=== PATIENT | male | born 1955 | race American Indian/Alaskan Native ===

== ENCOUNTER 2022-05-18 14:33 | Emergency (ER) | payer MEDICARE ==
[2022-05-18 14:39] VITALS: BP 96/60
[2022-05-18] MEDS ORDERED: LACTATED RINGERS 1,000 ML IV ONE (15:37)
--- NOTE | 2022-05-18 15:41 | Emergency Department Report ---
ED General Adult HPI - General Chief complaint: Urogenital-Male Stated complaint: HEMATURIA Time Seen by Provider: 05/18/22 15:36 Source: patient, EMS Mode of arrival: Stretcher Limitations: No Limitations - History of Present Illness Initial comments: PATIENT ARRIVING FROM [facility] FOR HEMATURIA STARTED TODAY IN [place] [facility]. THIS IS A NON-VERBAL, GENERALIZED BODY CONTRACTED MALE WHICH PER NURSE, ITS HIS BASELINE BROUGHT IN BY EMS FROM [facility] BECAUSE THEY HAVE NOTICED BLOOD IN THE URINE FROM THE [place]. DENIES ANY OTHER ISSUES. UNABLE TO OBTAIN ROS OR HPI FROM THE PATIENT DUE TO PATIENT'S BASELINE NOT ABLE TO HAVE CONVERSATIONS. - Related Data Home Medications Medication Instructions Recorded Confirmed Last Taken Bethanechol 10 mg FEEDTUBE TID 01/25/22 02/02/22 Unknown Cyanocobalamin [Vitamin B-12] 100 mcg PO DAILY 01/25/22 02/02/22 Unknown Enoxaparin 40 mg SQ QDAY 01/25/22 02/02/22 Unknown Erythromycin Ethylsucc Susp 20 ml FEEDTUBE Q8H 01/25/22 02/02/22 Unknown [E.e.s. 200] Famotidine [Zantac-360 20 mg FEEDTUBE DAILY 01/25/22 02/02/22 Unknown (Famotidine)] Fluticasone [Flonase] 1 spray BN BID 01/25/22 02/02/22 Unknown Glycopyrrolate 2 mg FEEDTUBE TID 01/25/22 02/02/22 Unknown Pantoprazole Sodium 20 mg FEEDTUBE DAILY 01/25/22 02/02/22 Unknown Refresh Celluvisc 1 drop NOTAPPLIC DAILY 01/25/22 02/02/22 Unknown Scopolamine [Transderm-Scop] 1 each TD Q3D 01/25/22 02/02/22 Unknown Sennosides [Senna] 2 tab FEEDTUBE BID 01/25/22 02/02/22 Unknown guaiFENesin/DEXTROMETHORPHAN 10 ml FEEDTUBE QID 01/25/22 02/02/22 Unknown [Guaifenesin-Dm 100-10 mg/5 ml] Previous Rx's Medication Instructions Recorded Last Taken Type Digoxin [Lanoxin] 0.125 mg PO DAILY@1700 #30 tablet 01/31/22 Unknown Rx Ipratropium/Albuterol Sulfate 1 ampul IH Q6HRT #90 ampul.neb 01/31/22 Unknown Rx [DUONEB *Not for PRN Use*] Metoprolol [Lopressor TAB] 12.5 mg FEEDTUBE Q6HR #120 tablet 01/31/22 Unknown Rx Midodrine [Proamatine] 10 mg FEEDTUBE TID@0800,1200,1600 01/31/22 Unknown Rx #90 tablet Furosemide [Lasix TAB] 40 mg PO QDAY #30 tablet 02/05/22 Unknown Rx Allergies Allergy/AdvReac Type Severity Reaction Status Date / Time No Known Allergies Allergy Verified 05/18/22 14:39 ED Review of Systems ROS: Stated complaint: HEMATURIA Other details as noted in HPI Comment: Unobtainable due to pts medical conditions ED Past Medical Hx - Past Medical History Hx Hypertension: Yes Additional medical history: A-Fib. CAD. TRACH. PEG-tube - Social History Smoking Status: Unknown if ever smoked - Medications Home Medications: Home Medications Medication Instructions Recorded Confirmed Last Taken Type Bethanechol 10 mg FEEDTUBE TID 01/25/22 02/02/22 Unknown History Cyanocobalamin [Vitamin B-12] 100 mcg PO DAILY 01/25/22 02/02/22 Unknown History Enoxaparin 40 mg SQ QDAY 01/25/22 02/02/22 Unknown History Erythromycin Ethylsucc Susp 20 ml FEEDTUBE Q8H 01/25/22 02/02/22 Unknown History [E.e.s. 200] Famotidine [Zantac-360 20 mg FEEDTUBE DAILY 01/25/22 02/02/22 Unknown History (Famotidine)] Fluticasone [Flonase] 1 spray BN BID 01/25/22 02/02/22 Unknown History Glycopyrrolate 2 mg FEEDTUBE TID 01/25/22 02/02/22 Unknown History Pantoprazole Sodium 20 mg FEEDTUBE DAILY 01/25/22 02/02/22 Unknown History Refresh Celluvisc 1 drop NOTAPPLIC DAILY 01/25/22 02/02/22 Unknown History Scopolamine [Transderm-Scop] 1 each TD Q3D 01/25/22 02/02/22 Unknown History Sennosides [Senna] 2 tab FEEDTUBE BID 01/25/22 02/02/22 Unknown History guaiFENesin/DEXTROMETHORPHAN 10 ml FEEDTUBE QID 01/25/22 02/02/22 Unknown History [Guaifenesin-Dm 100-10 mg/5 ml] Digoxin [Lanoxin] 0.125 mg PO DAILY@1700 #30 tablet 01/31/22 02/02/22 Unknown Rx Ipratropium/Albuterol Sulfate 1 ampul IH Q6HRT #90 ampul.neb 01/31/22 02/02/22 Unknown Rx [DUONEB *Not for PRN Use*] Metoprolol [Lopressor TAB] 12.5 mg FEEDTUBE Q6HR #120 tablet 01/31/22 02/02/22 Unknown Rx Midodrine [Proamatine] 10 mg FEEDTUBE TID@0800,1200,1600 01/31/22 02/02/22 Unknown Rx #90 tablet Furosemide [Lasix TAB] 40 mg PO QDAY #30 tablet 02/05/22 Unknown Rx ED Physical Exam - General Limitations: Physical Limitation, Other (PATIENT IS NON-VERBAL) General appearance: in no apparent distress, other (ENTIRE BODY CONTRACTED ) - Head Head exam: Present: atraumatic, normocephalic, normal inspection - Eye Eye exam: Present: normal appearance, PERRL, EOMI Pupils: Present: normal accommodation - ENT ENT exam: Present: other (TRACH INTACT) - Respiratory Respiratory exam: Present: normal lung sounds bilaterally - Cardiovascular Cardiovascular Exam: Present: regular rate - GI/Abdominal GI/Abdominal exam: Present: soft - Extremities Exam Extremities exam: Present: other (ALL EXTREMITY CONTRACTED; WHICH PER NURSE, ITS PATIENT'S BASELINE.) - Neurological Exam Neurological exam: Present: altered ED Course Vital Signs 05/18/22 14:34 Temperature 99.5 F Pulse Rate 93 H Respiratory 22 Rate Blood Pressure 96/60 [Left] O2 Sat by Pulse 100 Oximetry - Reevaluation(s) Reevaluation #1: 05/18/22 17:49 ACCORDING TO THE NURSE, PATIENT IS NOT PEEING BLOOD CLOTS. ED Medical Decision Making - Lab Data Result diagrams: 05/18/22 16:17 05/18/22 16:17 Critical care attestation.: If time is entered above; I have spent that time in minutes in the direct care of this critically ill patient, excluding procedure time. ED Disposition Clinical Impression: Hematuria, Normocytic anemia Disposition: 01 HOME / SELF CARE / HOMELESS Is pt being admited?: No Does the pt Need Aspirin: No Condition: Stable Instructions: Hematuria, Adult Additional Instructions: MAKE A FOLLOW UP APPOINTMENT WITH UROLOGIST OF HIS CHOICE TO BE SEEN WITHIN 3 DAYS FOR FURTHER OUTPATIENT EVALUATION. SOME OF THE UROLOGIST ARE: [facility] [address] [place] [address] [place] [id number] MD ARLENE GOLDEN MD BARRY M. ZISHOLTZ, MD Referrals: MARISSA KRAMER MD [Primary Care Provider] - 3-5 Days Time of Disposition: 17:50
[2022-05-18 17:19] LABS: Hematocrit 23.4 % (35.5-45.6); Hemoglobin 7.8 gm/dl (11.8-15.2); Mean Corpuscular HGB Conc 33 % (32-34); Mean Corpuscular Volume 93 fl (84-94); Platelet Count 498 K/mm3 (140-440); Red Blood Count 2.51 M/mm3 (3.65-5.03); Red Cell Distribution Width 18.5 % (13.2-15.2)
[2022-05-18 17:27] LABS: INR 1.03 (0.87-1.13)
[2022-05-18 17:32] LABS: Bacteria,Urine 4+ /HPF (Negative); Mucus,Urine 2+ /HPF
[2022-05-18 17:33] LABS: Color,Urine Red (Yellow); RBC,Urine > 182.0 /HPF (0.0-6.0); WBC,Urine > 182.0 /HPF (0.0-6.0)
[2022-05-18 17:39] LABS: Alanine Aminotransferase 7 units/L (7-56); BUN/Creatinine Ratio 19; Blood Urea Nitrogen 15 mg/dL (9-20); Hemolysis Index 7
== END 2022-05-18 22:28 | disposition home or self-care (01) ==
LOC: ED 14:33
DX: R31.9 Hematuria, unspecified (principal); D64.9 Anemia, unspecified; I10 Essential (primary) hypertension
CPT/HCPCS: 36415; 80053; 81001; 83735; 85027; 85610; 85730; 96360; 99284; J7120

== ENCOUNTER 2022-06-06 13:08 | Inpatient (IN) | payer MEDICARE ==
[2022-06-06] MEDS ORDERED: ACETAMINOPHEN 650 MG RECT SUPP PR ONE (15:53)
[2022-06-06] MEDS ORDERED: SODIUM CHLORIDE 0.9% 1000 ML 1,000 ML IV ONE (15:53)
--- NOTE | 2022-06-06 16:13 | XRay Report ---
CHEST 1 VIEW 06/06/2022 3:53 PM INDICATION / CLINICAL INFORMATION: sob, trach dependent. COMPARISON: 02/01/2022 FINDINGS: SUPPORT DEVICES: Stable position of tracheostomy tube. HEART / MEDIASTINUM: No significant abnormality. LUNGS / PLEURA: Interval development of right lower lobe consolidation. No pneumothorax. ADDITIONAL FINDINGS: No significant additional findings. IMPRESSION: 1. Interval development of right lower lobe consolidation concerning for pneumonia. Signer Name: Ry Lopez MD Signed: 06/06/2022 4:09 PM Workstation Name: [employer]
[2022-06-06] MEDS ORDERED: VANCOMYCIN 1,000 MG in SODIUM CHLORIDE 0.9% 500 ML 500 ML IV ONE (16:15)
[2022-06-06] MEDS ORDERED: CEFEPIME/NS 2 GM/100 ML 2 GM/100 ML BAG IV ONE (16:15)
--- NOTE | 2022-06-06 16:38 | Emergency Department Report ---
ED General Adult HPI - General Chief complaint: Dyspnea/Respdistress Stated complaint: RESP DISTRESS Time Seen by Provider: 06/06/22 15:22 Source: EMS, RN notes reviewed, old records reviewed ([facility] and previous [facility] record) Mode of arrival: Stretcher Limitations: Altered Mental Status, Physical Limitation - History of Present Illness Initial comments: 66-year-old male who is nonverbal, not ambulatory, trach and PEG dependent, and full code [facility] with fever and hypoxia. Patient's past medical history includes chronic atrial fibrillation, CAD, diastolic CHF, contractions of upper and lower extremities, anoxic brain damage, aphasia, tracheostomy, G-tube, hyperlipidemia, anemia, hypertension, osteomyelitis of the vertebrae sacrococcygeal region, chronic osteomyelitis of another site Since patient is unable to provide history of present illness information obtained from [facility] paperwork Patient is currently was noted to have alteration mental status and respiratory distress at the [facility] vital signs: Temp 101.1, BP 91/69, respiratory rate 24, pulse of 125 Patient's current medications via PEG include bethanechol 10 mg 3 times daily Ativan 1 mg every 4 hours as needed Tylenol 100 mg as needed every 6 hours Carvedilol 3.125 mg twice daily Vitamin C 500 mg Senna laxative Fludrocortisone 0.1 mg tablet 2 tablets twice daily Albuterol neb as needed Vitamin D q. weekly Vitamin B12 daily Folic acid daily Robinul 1 mg 2 tablets daily Crestor 10 mg daily Iron 65 mg daily milrinone 100 3 times daily Severity scale (0 -10): 5 - Related Data Home Medications Medication Instructions Recorded Confirmed Last Taken Bethanechol 10 mg FEEDTUBE TID 01/25/22 02/02/22 Unknown Cyanocobalamin [Vitamin B-12] 100 mcg PO DAILY 01/25/22 02/02/22 Unknown Enoxaparin 40 mg SQ QDAY 01/25/22 02/02/22 Unknown Erythromycin Ethylsucc Susp 20 ml FEEDTUBE Q8H 01/25/22 02/02/22 Unknown [E.e.s. 200] Famotidine [Zantac-360 20 mg FEEDTUBE DAILY 01/25/22 02/02/22 Unknown (Famotidine)] Fluticasone [Flonase] 1 spray BN BID 01/25/22 02/02/22 Unknown Glycopyrrolate 2 mg FEEDTUBE TID 01/25/22 02/02/22 Unknown Pantoprazole Sodium 20 mg FEEDTUBE DAILY 01/25/22 02/02/22 Unknown Refresh Celluvisc 1 drop NOTAPPLIC DAILY 01/25/22 02/02/22 Unknown Scopolamine [Transderm-Scop] 1 each TD Q3D 01/25/22 02/02/22 Unknown Sennosides [Senna] 2 tab FEEDTUBE BID 01/25/22 02/02/22 Unknown guaiFENesin/DEXTROMETHORPHAN 10 ml FEEDTUBE QID 01/25/22 02/02/22 Unknown [Guaifenesin-Dm 100-10 mg/5 ml] Previous Rx's Medication Instructions Recorded Last Taken Type Digoxin [Lanoxin] 0.125 mg PO DAILY@1700 #30 tablet 01/31/22 Unknown Rx Ipratropium/Albuterol Sulfate 1 ampul IH Q6HRT #90 ampul.neb 01/31/22 Unknown Rx [DUONEB *Not for PRN Use*] Metoprolol [Lopressor TAB] 12.5 mg FEEDTUBE Q6HR #120 tablet 01/31/22 Unknown Rx Midodrine [Proamatine] 10 mg FEEDTUBE TID@0800,1200,1600 01/31/22 Unknown Rx #90 tablet Furosemide [Lasix TAB] 40 mg PO QDAY #30 tablet 02/05/22 Unknown Rx Ciprofloxacin [Ciprofloxacin ORAL 500 mg PO Q12H 7 Days #70 ml 05/18/22 Unknown Rx LIQ] Allergies Allergy/AdvReac Type Severity Reaction Status Date / Time No Known Allergies Allergy Verified 05/18/22 14:39 ED Review of Systems ROS: Stated complaint: RESP DISTRESS Other details as noted in HPI Comment: Unobtainable due to pts medical conditions ED Past Medical Hx - Past Medical History Hx Hypertension: Yes Hx CVA: Yes Hx Congestive Heart Failure: Yes Hx Renal Disease: Yes Additional medical history: A-Fib. CAD. TRACH. PEG-tube - Social History Smoking Status: Unknown if ever smoked - Medications Home Medications: Home Medications Medication Instructions Recorded Confirmed Last Taken Type Bethanechol 10 mg FEEDTUBE TID 01/25/22 02/02/22 Unknown History Cyanocobalamin [Vitamin B-12] 100 mcg PO DAILY 01/25/22 02/02/22 Unknown History Enoxaparin 40 mg SQ QDAY 01/25/22 02/02/22 Unknown History Erythromycin Ethylsucc Susp 20 ml FEEDTUBE Q8H 01/25/22 02/02/22 Unknown History [E.e.s. 200] Famotidine [Zantac-360 20 mg FEEDTUBE DAILY 01/25/22 02/02/22 Unknown History (Famotidine)] Fluticasone [Flonase] 1 spray BN BID 01/25/22 02/02/22 Unknown History Glycopyrrolate 2 mg FEEDTUBE TID 01/25/22 02/02/22 Unknown History Pantoprazole Sodium 20 mg FEEDTUBE DAILY 01/25/22 02/02/22 Unknown History Refresh Celluvisc 1 drop NOTAPPLIC DAILY 01/25/22 02/02/22 Unknown History Scopolamine [Transderm-Scop] 1 each TD Q3D 01/25/22 02/02/22 Unknown History Sennosides [Senna] 2 tab FEEDTUBE BID 01/25/22 02/02/22 Unknown History guaiFENesin/DEXTROMETHORPHAN 10 ml FEEDTUBE QID 01/25/22 02/02/22 Unknown History [Guaifenesin-Dm 100-10 mg/5 ml] Digoxin [Lanoxin] 0.125 mg PO DAILY@1700 #30 tablet 01/31/22 02/02/22 Unknown Rx Ipratropium/Albuterol Sulfate 1 ampul IH Q6HRT #90 ampul.neb 01/31/22 02/02/22 Unknown Rx [DUONEB *Not for PRN Use*] Metoprolol [Lopressor TAB] 12.5 mg FEEDTUBE Q6HR #120 tablet 01/31/22 02/02/22 Unknown Rx Midodrine [Proamatine] 10 mg FEEDTUBE TID@0800,1200,1600 01/31/22 02/02/22 Unknown Rx #90 tablet Furosemide [Lasix TAB] 40 mg PO QDAY #30 tablet 02/05/22 Unknown Rx Ciprofloxacin [Ciprofloxacin ORAL 500 mg PO Q12H 7 Days #70 ml 05/18/22 Unknown Rx LIQ] ED Physical Exam - General Limitations: No Limitations - Other Other exam information: General: No acute distress Head: Atraumatic Eyes: normal appearance ENT: Dry mucous membrane Neck: Tracheostomy to Chest: Mild tachypnea, mild rhonchi CV: Mild tachycardia Abdomen: Soft, normal bowel sounds, PEG tube Back: Sacral decubitus Extremity: All 4 extremities contracted Neuro: Opens eyes to voice and tactile stimulation. Nonverbal, all 4 extremitie s are contracted Skin: 11 x 8 cm sacral decubitus ulcer stage II with a small area of malodorous yellow exudate, ulcers to b/l feet ED Course Vital Signs 06/06/22 06/06/22 06/06/22 13:21 19:25 20:09 Temperature 98.7 F Pulse Rate 112 H 103 H Respiratory 20 18 Rate Blood Pressure 98/64 91/50 [Left] O2 Sat by Pulse 96 99 100 Oximetry O2 Sat by Pulse Oximetry [ Assessment] 06/06/22 20:14 Temperature Pulse Rate Respiratory Rate Blood Pressure [Left] O2 Sat by Pulse Oximetry O2 Sat by Pulse 100 Oximetry [ Assessment] ED Medical Decision Making - Lab Data Result diagrams: 06/06/22 16:22 06/06/22 16:22 Lab Results 06/06/22 06/06/22 06/06/22 Range/Units 16:22 16:22 16:22 WBC 17.8 H (4.5-11.0) K/mm3 RBC 2.54 L (3.65-5.03) M/mm3 Hgb 7.5 L (11.8-15.2) gm/dl Hct 23.8 L (35.5-45.6) % MCV 94 (84-94) fl MCH 30 (28-32) pg MCHC 32 (32-34) % RDW 17.6 H (13.2-15.2) % Plt Count 743 H (140-440) K/mm3 Lymph % (Auto) 7.6 L (13.4-35.0) % Perry % (Auto) 5.0 (0.0-7.3) % Eos % (Auto) 0.1 (0.0-4.3) % Baso % (Auto) 0.3 (0.0-1.8) % Lymph # (Auto) 1.4 (1.2-5.4) K/mm3 Perry # (Auto) 0.9 H (0.0-0.8) K/mm3 Eos # (Auto) 0.0 (0.0-0.4) K/mm3 Baso # (Auto) 0.1 (0.0-0.1) K/mm3 Seg Neutrophils % 87.0 H (40.0-70.0) % Seg Neutrophils # 15.5 H (1.8-7.7) K/mm3 PT 13.9 (12.2-14.9) Sec. INR 0.97 (0.87-1.13) APTT 36.3 (24.2-36.6) Sec. Sodium 144 (137-145) mmol/L Potassium 3.9 (3.6-5.0) mmol/L Chloride 101.1 (98-107) mmol/L Carbon Dioxide 30 (22-30) mmol/L Anion Gap 17 mmol/L BUN 16 (9-20) mg/dL Creatinine 0.7 L (0.8-1.3) mg/dL Estimated GFR > 60 ml/min BUN/Creatinine Ratio 23 % Glucose 106 H (75-100) mg/dL Lactic Acid (0.7-2.0) mmol/L Calcium 9.0 (8.4-10.2) mg/dL Total Bilirubin 0.60 (0.1-1.2) mg/dL AST 12 (5-40) units/L ALT 10 (7-56) units/L Alkaline Phosphatase 115 (35-129) units/L Troponin T 0.069 H (0.00-0.029) ng/mL NT-Pro-B Natriuret Pep 1733 H (0-900) pg/mL Total Protein 7.9 (6.3-8.2) g/dL Albumin 3.2 L (3.9-5) g/dL Albumin/Globulin Ratio 0.7 % Triglycerides 54 (2-149) mg/dL Cholesterol 90 (50-199) mg/dL LDL Cholesterol Direct 39 L (50-130) mg/dL HDL Cholesterol 46 (40-59) mg/dL Cholesterol/HDL Ratio 1.95 % 06/06/22 06/06/22 Range/Units 16:22 18:07 WBC (4.5-11.0) K/mm3 RBC (3.65-5.03) M/mm3 Hgb (11.8-15.2) gm/dl Hct (35.5-45.6) % MCV (84-94) fl MCH (28-32) pg MCHC (32-34) % RDW (13.2-15.2) % Plt Count (140-440) K/mm3 Lymph % (Auto) (13.4-35.0) % Perry % (Auto) (0.0-7.3) % Eos % (Auto) (0.0-4.3) % Baso % (Auto) (0.0-1.8) % Lymph # (Auto) (1.2-5.4) K/mm3 Perry # (Auto) (0.0-0.8) K/mm3 Eos # (Auto) (0.0-0.4) K/mm3 Baso # (Auto) (0.0-0.1) K/mm3 Seg Neutrophils % (40.0-70.0) % Seg Neutrophils # (1.8-7.7) K/mm3 PT (12.2-14.9) Sec. INR (0.87-1.13) APTT (24.2-36.6) Sec. Sodium (137-145) mmol/L Potassium (3.6-5.0) mmol/L Chloride (98-107) mmol/L Carbon Dioxide (22-30) mmol/L Anion Gap mmol/L BUN (9-20) mg/dL Creatinine (0.8-1.3) mg/dL Estimated GFR ml/min BUN/Creatinine Ratio % Glucose (75-100) mg/dL Lactic Acid 2.00 1.40 (0.7-2.0) mmol/L Calcium (8.4-10.2) mg/dL Total Bilirubin (0.1-1.2) mg/dL AST (5-40) units/L ALT (7-56) units/L Alkaline Phosphatase (35-129) units/L Troponin T (0.00-0.029) ng/mL NT-Pro-B Natriuret Pep (0-900) pg/mL Total Protein (6.3-8.2) g/dL Albumin (3.9-5) g/dL Albumin/Globulin Ratio % Triglycerides (2-149) mg/dL Cholesterol (50-199) mg/dL LDL Cholesterol Direct (50-130) mg/dL HDL Cholesterol (40-59) mg/dL Cholesterol/HDL Ratio % - EKG Data -: EKG Interpreted by Me (PACs noted) EKG shows normal: sinus rhythm, ST-T waves (No STEMI) Rate: tachycardia - EKG Data When compared to previous EKG there are: no significant change - Radiology Data Radiology results: report reviewed CHEST 1 VIEW 06/06/2022 3:53 PM INDICATION / CLINICAL INFORMATION: sob, trach dependent. COMPARISON: 02/01/2022 FINDINGS: SUPPORT DEVICES: Stable position of tracheostomy tube. HEART / MEDIASTINUM: No significant abnormality. LUNGS / PLEURA: Interval development of right lower lobe consolidation. No pneumothorax. ADDITIONAL FINDINGS: No significant additional findings. IMPRESSION: 1. Interval development of right lower lobe consolidation concerning for pneumonia. - Medical Decision Making 66-year-old male [facility] with [facility]. X-ray shows signs of pneumonia. Patient also likely has an infected sacral decubitus ulcer. Per [facility]. Patient has a history of chronic osteomyelitis of the sacrum as well. Patient received antibiotics to cover for pneumonia as well as infected sacral decubitus ulcer. Signs of sepsis without lactic acidosis noted. Patient will be admitted to the hospital service for further treatment Critical Care Time: No Critical care attestation.: If time is entered above; I have spent that time in minutes in the direct care of this critically ill patient, excluding procedure time. ED Disposition Clinical Impression: Anemia, Pneumonia, Sacral decubitus ulcer, Infected decubitus ulcer, Tracheostomy dependence, History of anoxic brain injury Sepsis Qualifiers: Acute respiratory failure type: with hypoxia Disposition: 09 ADMITTED INPATIENT Is pt being admited?: Yes Condition: Stable
[2022-06-06] MEDS ORDERED: VANCOMYCIN PHARMACY TO DOSE IV SCH (17:00)
[2022-06-06 17:18] LABS: Basophils # (Auto) 0.1 K/mm3 (0.0-0.1); Basophils % (Auto) 0.3 % (0.0-1.8); Eosinophils % (Auto) 0.1 % (0.0-4.3); Hematocrit 23.8 % (35.5-45.6); Hemoglobin 7.5 gm/dl (11.8-15.2); Lymphocytes # (Auto) 1.4 K/mm3 (1.2-5.4); Lymphocytes % (Auto) 7.6 % (13.4-35.0); Mean Corpuscular HGB Conc 32 % (32-34); Mean Corpuscular Volume 94 fl (84-94); Monocytes # (Auto) 0.9 K/mm3 (0.0-0.8); Platelet Count 743 K/mm3 (140-440); Red Blood Count 2.54 M/mm3 (3.65-5.03); Red Cell Distribution Width 17.6 % (13.2-15.2)
[2022-06-06 17:27] LABS: Alanine Aminotransferase 10 units/L (7-56); Albumin 3.2 g/dL (3.9-5); Blood Urea Nitrogen 16 mg/dL (9-20); Hemolysis Index 6
[2022-06-06 17:28] LABS: BUN/Creatinine Ratio 23
[2022-06-06 17:32] LABS: INR 0.97 (0.87-1.13)
[2022-06-06 17:33] LABS: Partial Thromboplastin Time 36.3 Sec. (24.2-36.6)
[2022-06-06] MEDS ORDERED: VANCOMYCIN/NS 1 GM/250 ML 1 GM/250 ML BAG IV ONE (18:00)
[2022-06-06 18:06] LABS: Chol/HDL Ratio 1.95 %; HDL Cholesterol 46 mg/dL (40-59); LDL Cholesterol,Direct 39 mg/dL (50-130)
--- NOTE | 2022-06-06 18:17 | History and Physical Report ---
History of Present Illness Chief complaint: He has a fever and his blood pressure is low History of present illness: 66 YO Male [facility] Resident with Vascular Dementia, Cerebral Atherosclerosis, Axonic Brain Injury S/P Trach/Peg placement, HTN, GERD, diastolic CHF, Debility, BLE Contracture, Paroxysmal Atrial fib not on therapeutic anticoagulation due to recent GI bleed, chronic osteomyleitis, HLD, Anemia Chronic Disease, sacral decubitus ulcer present on admission presents to ED for evaluation. Patient has diminished cognition and is nonverbal and is unable to provide history. Patient has history provided by EMS staff, ED staff, as well as retirement facility staff. As per staff the patient was found to have fever to 102.1 F today as well as systolic blood pressure in the 90s. EMS was notified and upon arrival the patient was found to be in distress and subsequent transported to [facility] for further care and evaluation of the aforementioned symptoms. The patient was seen and evaluated in the emergency department. All lab and imaging studies reviewed. Patient found to have fever to 102 F, a systolic blood pressure in the 90s, and a pulse oximetry of 86% on room air which is consistent with acute hypoxemic respiratory failure suspected secondary to right lower lobe pneumonia likely secondary to aspiration, sepsis. Patient admitted to IMCU due to increased risk of worsening symptoms and for medical stabilization. Patient initiated on sepsis protocol. No reports of alicia st pain, palpitation, productive cough, skin rash, recent contact, known exposure to COVID-19. Prior admission on 02/01/2022 reviewed. All medication listed at time of admission has been reconciled. Advanced care planning conducted in ED. Past History Past Medical History: atrial fib, anemia, GERD, heart failure, hypertension, hyperlipidemia, other (See HPI) Past Surgical History: Other (Trach and PEG placement) Social history: single. denies: smoking, alcohol abuse, prescription drug abuse Family history: diabetes, hypertension Medications and Allergies Allergies Allergy/AdvReac Type Severity Reaction Status Date / Time No Known Allergies Allergy Verified 05/18/22 14:39 Home Medications Medication Instructions Recorded Confirmed Last Taken Type Bethanechol 10 mg FEEDTUBE TID 01/25/22 02/02/22 Unknown History Cyanocobalamin [Vitamin B-12] 100 mcg PO DAILY 01/25/22 02/02/22 Unknown History Enoxaparin 40 mg SQ QDAY 01/25/22 02/02/22 Unknown History Erythromycin Ethylsucc Susp 20 ml FEEDTUBE Q8H 01/25/22 02/02/22 Unknown History [E.e.s. 200] Famotidine [Zantac-360 20 mg FEEDTUBE DAILY 01/25/22 02/02/22 Unknown History (Famotidine)] Fluticasone [Flonase] 1 spray BN BID 01/25/22 02/02/22 Unknown History Glycopyrrolate 2 mg FEEDTUBE TID 01/25/22 02/02/22 Unknown History Pantoprazole Sodium 20 mg FEEDTUBE DAILY 01/25/22 02/02/22 Unknown History Refresh Celluvisc 1 drop NOTAPPLIC DAILY 01/25/22 02/02/22 Unknown History Scopolamine [Transderm-Scop] 1 each TD Q3D 01/25/22 02/02/22 Unknown History Sennosides [Senna] 2 tab FEEDTUBE BID 01/25/22 02/02/22 Unknown History guaiFENesin/DEXTROMETHORPHAN 10 ml FEEDTUBE QID 01/25/22 02/02/22 Unknown H istory [Guaifenesin-Dm 100-10 mg/5 ml] Digoxin [Lanoxin] 0.125 mg PO DAILY@1700 #30 tablet 01/31/22 02/02/22 Unknown Rx Ipratropium/Albuterol Sulfate 1 ampul IH Q6HRT #90 ampul.neb 01/31/22 02/02/22 Unknown Rx [DUONEB *Not for PRN Use*] Metoprolol [Lopressor TAB] 12.5 mg FEEDTUBE Q6HR #120 tablet 01/31/22 02/02/22 Unknown Rx Midodrine [Proamatine] 10 mg FEEDTUBE TID@0800,1200,1600 01/31/22 02/02/22 Unknown Rx #90 tablet Furosemide [Lasix TAB] 40 mg PO QDAY #30 tablet 02/05/22 Unknown Rx Ciprofloxacin [Ciprofloxacin ORAL 500 mg PO Q12H 7 Days #70 ml 05/18/22 Unknown Rx LIQ] Active Meds: Active Medications Vancomycin HCl (Vancomycin/Ns 1 Gm/250 Ml) 1 gm in 250 mls @ 166.667 mls/hr IV ONCE ONE Stop: 06/06/22 19:29 Review of Systems ROS unobtainable: due to endotracheal tube, due to mental status Exam - Constitutional Vitals: Temp Pulse Resp BP Pulse Ox 112 H 20 98/64 96 06/06/22 13:21 06/06/22 13:21 06/06/22 13:21 06/06/22 13:21 General appearance: Present: severe distress, cachectic - EENT Eyes: Present: PERRL - Neck Neck: Present: supple, normal ROM - Respiratory Respiratory effort: labored Respiratory: right: diminished - Cardiovascular Rhythm: other (Tachycardia) Heart Sounds: Present: S1 & S2. Absent: rub, click - Extremities Extremities: pulses symmetrical, No edema Peripheral Pulses: abnormal (Capillary refill greater than 3.5 seconds) - Abdominal General gastrointestinal: Present: soft, non-tender, non-distended, normal bowel sounds Male genitourinary: Present: normal - Integumentary Integumentary: Present: dry, clammy, decreased turgor - Musculoskeletal Musculoskeletal: generalized weakness - Psychiatric Psychiatric: no appropriate mood/affect, no intact judgment & insight, no memory intact - Neurologic Neurologic: CNII-XII intact, focal deficits, no moves all extremities, no gait normal HEART Score - HEART Score Troponin: Troponin T 0.069 ng/mL (0.00-0.029) H 06/06/22 16:22 Results - Labs CBC & Chem 7: 06/06/22 16:22 06/06/22 16:22 Labs: Abnormal lab results 06/06/22 06/06/22 Range/Units 16:22 16:22 WBC 17.8 H (4.5-11.0) K/mm3 RBC 2.54 L (3.65-5.03) M/mm3 Hgb 7.5 L (11.8-15.2) gm/dl Hct 23.8 L (35.5-45.6) % RDW 17.6 H (13.2-15.2) % Plt Count 743 H (140-440) K/mm3 Lymph % (Auto) 7.6 L (13.4-35.0) % [place] # (Auto) 0.9 H (0.0-0.8) K/mm3 Seg Neutrophils % 87.0 H (40.0-70.0) % Seg Neutrophils # 15.5 H (1.8-7.7) K/mm3 Creatinine 0.7 L (0.8-1.3) mg/dL Glucose 106 H (75-100) mg/dL Troponin T 0.069 H (0.00-0.029) ng/mL NT-Pro-B Natriuret Pep 1733 H (0-900) pg/mL Albumin 3.2 L (3.9-5) g/dL LDL Cholesterol Direct 39 L (50-130) mg/dL Assessment and Plan - Patient Problems (1) Sepsis Status: Acute Qualifiers: Acute respiratory failure type: with hypoxia Plan to address problem: Sepsis protocol: Chest x-ray, CBC, BMP, urinalysis, IV fluid resuscitation therapy, IV antibiotic therapy, maintain mean arterial pressure greater than equal to 65, IV pressor support as clinically indicated, blood culture, serial lactic acid level, monitor fluid balance. (2) Aspiration pneumonia due to gastric secretions Status: Acute Qualifiers: Laterality: right Lung location: lower lobe of lung Qualified Code(s): J69.0 - Pneumonitis due to inhalation of food and vomit Plan to address problem: Pneumonia protocol: Suspected gram-negative pneumonia. IV antibiotic therapy, supplemental oxygen, pulse oximetry, nebulizer therapy, aspiration precautions, (3) Acute and chronic respiratory failure Status: Acute Qualifiers: Respiratory failure complication: hypoxia Qualified Code(s): J96.21 - Acute and chronic respiratory failure with hypoxia Plan to address problem: Chest x-ray, supplemental oxygen, pulse oximetry, nebulizer therapy, noninvasive positive pressure ventilation as clinically indicated. Tracheostomy care. (4) History of anoxic brain injury Status: Acute Plan to address problem: Supportive care, chronic, neuro check. (5) Osteomyelitis hip Status: Acute Plan to address problem: Chronic, supportive care, continue medical management. (6) Sacral pressure sore Status: Acute Plan to address problem: Wound care consulted, wound care as per wound care team. (7) Atrial fibrillation Status: Acute Qualifiers: Atrial fibrillation type: paroxysmal Qualified Code(s): I48.0 - Paroxysmal atrial fibrillation Plan to address problem: Continue prophylactic anticoagulation. Therapy anticoagulation discontinued due to GI bleed (8) Vascular dementia Status: Acute Qualifiers: Dementia behavioral disturbance: without behavioral disturbance Qualified Code(s): F01.50 - Vascular dementia without behavioral disturbance Plan to address problem: Verbal prompting, verbal redirection, benzodiazepine therapy as clinically indicated. (9) Cerebral atherosclerosis Status: Acute Plan to address problem: Risk factor reduction, antiplatelet therapy as clinically indicated. (10) GERD (gastroesophageal reflux disease) Status: Acute Qualifiers: Esophagitis presence: without esophagitis Qualified Code(s): K21.9 - Gastro-esophageal reflux disease without esophagitis Plan to address problem: PPI therapy, supportive care. (11) DVT prophylaxis Status: Acute Plan to address problem: SCD to bilateral lower extremities while in bed, prophylactic anticoagulation. (12) Advance care planning Status: Acute Plan to address problem: Disease education done, care plan discussed, diagnosis discussed, prognosis discussed, patient is full code, +30 minutes. (13) Preventative health care Status: Acute Plan to address problem: Patient to follow-up with primary care physician for all age and risk factor appropriate screening tests, retirement facility staff educated regarding trach care and aspiration precautions. +30 minutes.
[2022-06-06] MEDS ORDERED: HYDROmorphone 0.5 MG/0.5 ML INJ IV PRN ×2 (18:19→18:32)
[2022-06-06] MEDS ORDERED: oxyCODONE /ACETAMINOPHEN 5-325MG TAB PO PRN (18:19)
[2022-06-06] MEDS ORDERED: ALBUTEROL 2.5 MG/3 ML NEBU IH PRN (18:19)
[2022-06-06] MEDS ORDERED: ACETAMINOPHEN 650 MG RECT SUPP PR PRN (18:19)
[2022-06-06] MEDS ORDERED: SODIUM CHLORIDE 0.9% 1000 ML IV SOLN IV ONE (18:32)
[2022-06-06] MEDS ORDERED: ACETAMINOPHEN 325 MG TAB PO PRN (18:32)
--- NOTE | 2022-06-06 18:34 | Procedure Note ---
Date of procedure: 06/06/22 Pre-op diagnosis: Sepsis Post-op diagnosis: same Procedure: Right femoral vein triple-lumen catheter under ultrasound guidance After informed consent was obtained the patient was prepped and draped in usual sterile fashion. A timeout was taken with the patient's nurse at bedside to verify the correct patient, the correct procedure, and the correct operative site. Local anesthesia obtained with 1% lidocaine. Ultrasound was utilized to localize the right femoral vein without difficulty. The Seldinger technique was utilized to access the right femoral vein under direct visualization with ultrasound while inserting a seeker needle into the right femoral vein without difficulty. A guidewire was then advanced into the right femoral vein without difficulty and the seeker needle removed. A scalpel was used to incise the skin at the insertion site. A dilator was then passed over the guidewire into the right femoral vein and subsequently removed. A preflush triple-lumen catheter was then advanced into the right femoral vein and the guidewire subsequently removed. All 3 ports flush and drawl with ease. 3-0 silk suture was utilized to suture the triple-lumen catheter in place. A Biopatch was placed at the insertion site. A sterile dressing was then utilized to cover the triple-lumen catheter. All 3 ports flush and drawl with ease. Estimated blood loss minimal. Complications none. Specimens none. Anesthesia: local Surgeon: BHAVNA CALDERA Estimated blood loss: minimal Pathology: none Condition: stable Disposition: other
[2022-06-06] MEDS ORDERED: BETHANECHOL FEEDTUBE SCH (20:00)
[2022-06-06] MEDS: CEFEPIME/NS 2 GM/100 ML 2 GM/100 ML BAG IV SCH (20:11)
[2022-06-06] MEDS: BETHANECHOL 10 MG TAB PO SCH (20:32)
[2022-06-06] MEDS: SENNOSIDES 8.6 MG TAB FEEDTUBE SCH (22:10)
[2022-06-06] MEDS: HEPARIN 5,000 UNIT/1 ML VIAL SUB-Q SCH (23:43)
[2022-06-07] MEDS: METOPROLOL TARTRATE 25 MG TAB FEEDTUBE SCH ×5 (00:44→23:38)
[2022-06-07] MEDS: CEFEPIME/NS 2 GM/100 ML 2 GM/100 ML BAG IV SCH ×3 (02:19→21:26)
[2022-06-07 02:43] LABS: Color,Urine Yellow (Yellow)
[2022-06-07 02:52] LABS: Bacteria,Urine 2+ /HPF (Negative); Mucus,Urine FEW /HPF
[2022-06-07 06:40] LABS: Basophils % (Auto) 0.2 % (0.0-1.8); Eosinophils % (Auto) 0.4 % (0.0-4.3); Hematocrit 20.2 % (35.5-45.6); Hemoglobin 6.2 gm/dl (11.8-15.2); Lymphocytes # (Auto) 0.9 K/mm3 (1.2-5.4); Lymphocytes % (Auto) 8.3 % (13.4-35.0); Mean Corpuscular HGB Conc 31 % (32-34); Mean Corpuscular Volume 96 fl (84-94); Monocytes # (Auto) 0.8 K/mm3 (0.0-0.8); Monocytes % (Auto) 7.1 % (0.0-7.3); Platelet Count 552 K/mm3 (140-440); Red Blood Count 2.11 M/mm3 (3.65-5.03); Red Cell Distribution Width 17.7 % (13.2-15.2)
[2022-06-07] MEDS ORDERED: SODIUM CHLORIDE 0.9% 500 ML 500 ML IV ONE (06:48)
[2022-06-07] MEDS ORDERED: MIDODRINE 5 MG TAB FEEDTUBE SCH (08:00)
[2022-06-07] MEDS ORDERED: DEXTROMETHORPHAN FEEDTUBE SCH (10:00)
[2022-06-07] MEDS ORDERED: [UNRECOGNIZED DRUG - OTHER] FEEDTUBE SCH (10:00)
[2022-06-07] MEDS ORDERED: REFRESH CELLUVISC NOTAPPLIC SCH (10:00)
[2022-06-07] MEDS ORDERED: GUAIFENESIN FEEDTUBE SCH (10:00)
[2022-06-07] MEDS ORDERED: SODIUM CHLORIDE 0.9% 500 ML 500 ML ONE (10:12)
[2022-06-07] MEDS: HEPARIN 5,000 UNIT/1 ML VIAL SUB-Q SCH ×2 (10:33→21:36)
[2022-06-07] MEDS: SENNOSIDES 8.6 MG TAB FEEDTUBE SCH ×2 (10:33→21:34)
[2022-06-07] MEDS: MIDODRINE 10 MG TAB FEEDTUBE SCH ×3 (10:33→21:34)
[2022-06-07] MEDS: FUROSEMIDE 40 MG TAB PO SCH (10:34)
[2022-06-07] MEDS: FAMOTIDINE 20 MG TAB FEEDTUBE SCH (10:34)
[2022-06-07] MEDS ORDERED: ERYTHROMYCIN ETHYLSUCC SUSP 400 MG/10 ML ORAL LIQD FEEDTUBE SCH (11:00)
[2022-06-07] MEDS ORDERED: FLUTICASONE PROPIONATE NASAL SPRAY 16 GM NS SCH (11:30)
--- NOTE | 2022-06-07 11:57 | Progress Note ---
Assessment and Plan Assessment and plan: 66 YO Male Assisted Facility Resident with Vascular Dementia, Cerebral Atherosclerosis, Axonic Brain Injury S/P Trach/Peg placement, HTN, GERD, diastolic CHF, Debility, BLE Contracture, Paroxysmal Atrial fib not on therapeutic anticoagulation due to recent GI bleed, chronic osteomyleitis, HLD, Anemia Chronic Disease, sacral decubitus ulcer present on admission presents to ED for evaluation. Patient has diminished cognition and is nonverbal and is unable to provide history. Patient has history provided by EMS staff, ED staff, as well as custodial facility staff. As per staff the patient was found to have fever to 102.1 F today as well as systolic blood pressure in the 90s. EMS was notified and upon arrival the patient was found to be in distress and subsequent transported to [facility] for further care and evaluation of the aforementioned symptoms. The patient was seen and evaluated in the emergency department. All lab and imaging studies reviewed. Patient found to have fever to 102 F, a systolic blood pressure in the 90s, and a pulse oximetry of 86% on room air which is consistent with acute hypoxemic respiratory failure suspected secondary to right lower lobe pneumonia likely secondary to aspiration, sepsis. Patient admitted to [facility] due to increased risk of worsening symptoms and for medical stabilization. Patient initiated on sepsis protocol. No reports of chest pain, palpitation, productive cough, skin rash, recent contact, known exposure to COVID-19. Prior admission on 02/01/2022 reviewed. All medication listed at time of admission has been reconciled. Advanced care planning conducted in ED. Past History Past Medical History: atrial fib, anemia, GERD, heart failure, hypertension, hyperlipidemia, other (See HPI) Past Surgical History: Other (Trach and PEG placement) Social history: single. denies: smoking, alcohol abuse, prescription drug abuse Family history: diabetes, hypertension 06/07: Patient with Sepsis secondary to acute cystitis which likely led to Exacerbation of Atrial fibrillation with hypotension now resolving, complicated by Severe anemia. Baseline Hgb is around 8. No evidence of GI bleed. Urine culture sent for. cct 35 min (1) Sepsis Status: Acute Qualifiers: Acute respiratory failure type: with hypoxia Plan to address problem: Sepsis protocol: Chest x-ray, CBC, BMP, urinalysis, IV fluid resuscitation therapy, IV antibiotic therapy, maintain mean arterial pressure greater than equal to 65, IV pressor support as clinically indicated, blood culture, serial lactic acid level, monitor fluid balance. (2) Aspiration pneumonia due to gastric secretions Status: Acute Qualifiers: Laterality: right Lung location: lower lobe of lung Qualified Code(s): J69.0 - Pneumonitis due to inhalation of food and vomit Plan to address problem: Pneumonia protocol: Suspected gram-negative pneumonia. IV antibiotic therapy, supplemental oxygen, pulse oximetry, nebulizer therapy, aspiration precautions, (3) Acute and chronic respiratory failure Status: Acute Qualifiers: Respiratory failure complication: hypoxia Qualified Code(s): J96.21 - Acute and chronic respiratory failure with hypoxia Plan to address problem: Chest x-ray, supplemental oxygen, pulse oximetry, nebulizer therapy, noninvasive positive pressure ventilation as clinically indicated. Tracheostomy care. (4) History of anoxic brain injury Status: Acute Plan to address problem: Supportive care, chronic, neuro check. (5) Osteomyelitis hip Status: Acute Plan to address problem: Chronic, supportive care, continue medical management. (6) Sacral pressure sore Status: Acute Plan to address problem: Wound care consulted, wound care as per wound care team. (7) Atrial fibrillation Status: Acute Qualifiers: Atrial fibrillation type: paroxysmal Qualified Code(s): I48.0 - Paroxysmal atrial fibrillation Plan to address problem: Continue prophylactic anticoagulation. Therapy anticoagulation discontinued due to GI bleed (8) Vascular dementia Status: Acute Qualifiers: Dementia behavioral disturbance: without behavioral disturbance Qualified Code(s): F01.50 - Vascular dementia without behavioral disturbance Plan to address problem: Verbal prompting, verbal redirection, benzodiazepine therapy as clinically nya cated. (9) Cerebral atherosclerosis Status: Acute Plan to address problem: Risk factor reduction, antiplatelet therapy as clinically indicated. (10) GERD (gastroesophageal reflux disease) Status: Acute Qualifiers: Esophagitis presence: without esophagitis Qualified Code(s): K21.9 - Gastro-esophageal reflux disease without esophagitis Plan to address problem: PPI therapy, supportive care. (11) Severe Anemia (12) DVT prophylaxis Status: Acute Plan to address problem: SCD to bilateral lower extremities while in bed, prophylactic anticoagulation. (13) Advance care planning Status: Acute Plan to address problem: Disease education done, care plan discussed, diagnosis discussed, prognosis discussed, patient is full code, +30 minutes. (14) Preventative health care Status: Acute Plan to address problem: Patient to follow-up with primary care physician for all age and risk factor appropriate screening tests, custodial facility staff educated regarding trach care and aspiration precautions. +30 minutes. Hospitalist Physical - Physical exam Narrative exam: General appearance: Present: No distress, patient has chronic trach, cachectic - EENT Eyes: Present: PERRL - Neck Neck: Present: supple, normal ROM - Respiratory Respiratory effort: labored, Trach Respiratory: right: diminished - Cardiovascular Rhythm: other (Tachycardia) Heart Sounds: Present: S1 & S2. Absent: rub, click - Extremities Extremities: pulses symmetrical, No edema Peripheral Pulses: abnormal (Capillary refill greater than 3.5 seconds) - Abdominal General gastrointestinal: Present: soft, non-tender, non-distended, normal bowel sounds Male genitourinary: Present: normal - Integumentary Integumentary: Present: dry, clammy, decreased turgor - Musculoskeletal Musculoskeletal: generalized weakness - Psychiatric Psychiatric: no appropriate mood/affect, no intact judgment & insight, no memory intact - Neurologic Neurologic: CNII-XII intact, focal deficits, no moves all extremities, no gait normal - Constitutional Vitals: Temp Pulse Resp BP Pulse Ox 98.8 F 94 H 19 122/83 100 06/07/22 10:54 06/07/22 11:45 06/07/22 11:45 06/07/22 11:45 06/07/22 11:45 General appearance: Present: severe distress, cachectic HEART Score - HEART Score Troponin: Troponin T 0.069 ng/mL (0.00-0.029) H 06/06/22 16:22 Results - Labs CBC & Chem 7: 06/07/22 05:00 06/06/22 16:22 Labs: Laboratory Last Values WBC 11.0 K/mm3 (4.5-11.0) 06/07/22 05:00 RBC 2.11 M/mm3 (3.65-5.03) L 06/07/22 05:00 Hgb 6.2 gm/dl (11.8-15.2) L 06/07/22 05:00 Hct 20.2 % (35.5-45.6) L 06/07/22 05:00 MCV 96 fl (84-94) H 06/07/22 05:00 MCH 29 pg (28-32) 06/07/22 05:00 MCHC 31 % (32-34) L 06/07/22 05:00 RDW 17.7 % (13.2-15.2) H 06/07/22 05:00 Plt Count 552 K/mm3 (140-440) H 06/07/22 05:00 Lymph % (Auto) 8.3 % (13.4-35.0) L 06/07/22 05:00 Beck[place] % (Auto) 7.1 % (0.0-7.3) 06/07/22 05:00 Eos % (Auto) 0.4 % (0.0-4.3) 06/07/22 05:00 Baso % (Auto) 0.2 % (0.0-1.8) 06/07/22 05:00 Lymph # (Auto) 0.9 K/mm3 (1.2-5.4) L 06/07/22 05:00 Beckham # (Auto) 0.8 K/mm3 (0.0-0.8) 06/07/22 05:00 Eos # (Auto) 0.0 K/mm3 (0.0-0.4) 06/07/22 05:00 Baso # (Auto) 0.0 K/mm3 (0.0-0.1) 06/07/22 05:00 Seg Neutrophils % 84.0 % (40.0-70.0) H 06/07/22 05:00 Seg Neutrophils # 9.3 K/mm3 (1.8-7.7) H 06/07/22 05:00 PT 13.9 Sec. (12.2-14.9) 06/06/22 16:22 INR 0.97 (0.87-1.13) 06/06/22 16:22 APTT 36.3 Sec. (24.2-36.6) 06/06/22 16:22 Sodium 144 mmol/L (137-145) 06/06/22 16:22 Potassium 3.9 mmol/L (3.6-5.0) 06/06/22 16:22 Chloride 101.1 mmol/L (98-107) 06/06/22 16:22 Carbon Dioxide 30 mmol/L (22-30) 06/06/22 16:22 Anion Gap 17 mmol/L 06/06/22 16:22 BUN 16 mg/dL (9-20) 06/06/22 16:22 Creatinine 0.7 mg/dL (0.8-1.3) L 06/06/22 16:22 Estimated GFR > 60 ml/min 06/06/22 16: BUN/Creatinine Ratio 23 % 06/06/22 16:22 Glucose 106 mg/dL (75-100) H 06/06/22 16:22 POC Glucose 86 mg/dL (70-105) 06/07/22 02:03 Lactic Acid 0.80 mmol/L (0.7-2.0) 06/06/22 23:29 Calcium 9.0 mg/dL (8.4-10.2) 06/06/22 16: Total Bilirubin 0.60 mg/dL (0.1-1.2) 06/06/22 16: AST 12 units/L (5-40) 06/06/22 16: ALT 10 units/L (7-56) 06/06/22 16:22 Alkaline Phosphatase 115 units/L (35-129) 06/06/22 16:22 Troponin T 0.069 ng/mL (0.00-0.029) H 06/06/22 16:22 NT-Pro-B Natriuret Pep 1733 pg/mL (0-900) H 06/06/22 16:22 Total Protein 7.9 g/dL (6.3-8.2) 06/06/22 16:22 Albumin 3.2 g/dL (3.9-5) L 06/06/22 16:22 Albumin/Globulin Ratio 0.7 % 06/06/22 16: Triglycerides 54 mg/dL (2-149) 06/06/22 16:22 Cholesterol 90 mg/dL (50-199) 06/06/22 16:22 LDL Cholesterol Direct 39 mg/dL (50-130) L 06/06/22 16:22 HDL Cholesterol 46 mg/dL (40-59) 06/06/22 16: Cholesterol/HDL Ratio 1.95 % 06/06/22 16:22 Urine Color Yellow (Yellow) 06/06/22 Unknown Urine Turbidity Slightly cloudy (Clear) 06/06/22 Unknown Specific Hammond (Man) 1.005 (1.003-1.030) 06/06/22 Unknown Ur Protein (Man) 1+ mg/dL (Negative) 06/06/22 Unknown Ur Ketones (Man) Negative (Negative) 06/06/22 Unknown Ur Nitrite (Man) Positive (Negative) 06/06/22 Unknown Urine Bilirubin (Man) Negative (Negative) 06/06/22 Unknown Leukocyte Esterase (Man) Moderate (Negative) 06/06/22 Unknown Urine WBC (Auto) 109.0 /HPF (0.0-6.0) H 06/06/22 Unknown Urine RBC (Auto) 14.0 /HPF (0.0-6.0) 06/06/22 Unknown U Epithel Cells (Auto) 1.0 /HPF (0-13.0) 06/06/22 Unknown Urine Bacteria (Auto) 2+ /HPF (Negative) 06/06/22 Unknown Urine RBC (Manual) 4+ (Negative) 06/06/22 Unknown Urine Mucus Few /HPF 06/06/22 Unknown Urine Yeast (Budding) 2+ /HPF 06/06/22 Unknown Blood Type O POSITIVE 06/06/22 18:40 Antibody Screen Negative 06/06/22 18:40 Crossmatch See Detail 06/06/22 18:40 Microbiology: Microbiology 06/06/22 16:22 Peripheral/Venous Blood Culture - Preliminary Culture in Progress 06/06/22 16:22 Peripheral/Venous Blood Culture - Preliminary Culture in Progress Martinez/IV: Voiding Method Condom Catheter Active Medications - Current Medications Current Medications: Generic Name Dose Route Start Last Admin Trade Name Freq PRN Reason Stop Dose Admin Acetaminophen 650 mg 06/06/22 18:19 Acetaminophen 650 Mg Rect Supp NE Q6H PRN Pain MILD(1-3)/Fever >100.5/MONTES Acetaminophen 650 mg 06/06/22 18:32 Acetaminophen 325 Mg Tab PO Q6H PRN Pain, Mild (1-3) Albuterol 2.5 mg 06/06/22 18:19 Albuterol 2.5 Mg/3 Ml Nebu IH Q3HRT PRN Shortness Of Breath Artificial Tears 1 drops 06/07/22 12:00 Hypromellose 0.5% Ophth Soln 15 Ml OU DAILY SANTO Bethanechol Chloride 10 mg 06/06/22 20:00 06/06/22 20:32 Bethanechol 10 Mg Tab PO Not Given TID SANTO Cyanocobalamin 100 mcg 06/07/22 10:00 Cyanocobalamin (Vit B-12) 100 Mcg Tab PO DAILY [facility] Digoxin 0.125 mg 06/07/22 17:00 Digoxin 0.125 Mg Tab PO DAILY@1700 [facility] Erythromycin Ethylsuccinate 800 mg 06/07/22 11:00 Erythromycin Ethylsucc Susp 400 Mg/10 Ml Oral Liqd FEEDTUBE Q8H [facility] Protocol Famotidine 20 mg 06/07/22 10:00 06/07/22 10:34 Famotidine 20 Mg Tab FEEDTUBE 20 mg DAILY [facility] Administration Fluticasone Propionate 50 mcg 06/07/22 11:30 Fluticasone Propionate Nasal [place] 16 Gm NS BID [facility] Furosemide 40 mg 06/07/22 10:00 06/07/22 10:34 Furosemide 40 Mg Tab PO 40 mg QDAY [facility] Administration Glycopyrrolate 2 mg 06/07/22 14:00 Glycopyrrolate 2 Mg Tab PO TID [facility] Guaifenesin 10 ml 06/07/22 14:00 Guaifenesin Dm 200/20 Mg Oral Liqd 10 Ml PO QID [facility] Heparin Sodium (Porcine) 5,000 unit 06/06/22 22:00 06/07/22 10:33 Heparin 5,000 Unit/1 Ml Vial SUB-Q 5,000 unit Q12HR [facility] Administration Hydromorphone HCl 0.5 mg 06/06/22 18:19 Hydromorphone 0.5 Mg/0.5 Ml Inj IV Q3H PRN Pain , Severe (7-10) Hydromorphone HCl 0.25 mg 06/06/22 18:32 Hydromorphone 0.5 Mg/0.5 Ml Inj IV Q4H PRN Pain, Moderate (4-6) Cefepime HCl 2 gm in 100 mls @ 200 mls/hr 06/06/22 19:00 06/07/22 10:33 Cefepime/Ns 2 Gm/100 Ml IV 200 mls/hr Q8H [facility] Administration Protocol Vancomycin HCl 1 gm in 250 mls @ 166.667 mls/hr 06/07/22 12:00 Vancomycin/Ns 1 Gm/250 Ml IV Q12H [facility] Metoprolol Tartrate 12.5 mg 06/07/22 00:00 06/07/22 05:07 Metoprolol Tartrate 25 Mg Tab FEEDTUBE Not Given Q6HR [facility] Midodrine 10 mg 06/07/22 08:00 06/07/22 10:33 Midodrine 10 Mg Tab FEEDTUBE 10 mg TID@0800,1200,1600 [facility] Administration Oxycodone/Acetaminophen 1 tab 06/06/22 18:19 Oxycodone /Acetaminophen 5-325mg Tab PO Q6H PRN Pain, Moderate (4-6) Scopolamine 1 each 06/09/22 10:00 Scopolamine Transdermal Patch 72 Hr TD Q3D [facility] Senna 8.6 mg 06/06/22 22:00 06/07/22 10:33 Sennosides 8.6 Mg Tab FEEDTUBE 8.6 mg BID [facility] Administration Sodium Chloride 10 ml 06/06/22 22:00 06/07/22 10:34 Sodium Chloride 0.9% 10 Ml Flush Syringe IV 10 ml BID [facility] Administration Sodium Chloride 10 ml 06/06/22 18:19 Sodium Chloride 0.9% 10 Ml Flush Syringe IV PRN PRN LINE FLUSH
[2022-06-07] MEDS: BETHANECHOL 10 MG TAB PO SCH ×3 (12:38→21:34)
[2022-06-07] MEDS: HYPROMELLOSE 0.5% OPHTH SOLN 15 ML OU SCH (12:39)
[2022-06-07] MEDS: VANCOMYCIN/NS 1 GM/250 ML 1 GM/250 ML BAG IV SCH ×2 (12:39→23:31)
[2022-06-07] MEDS: guaiFENesin DM 200/20 MG ORAL LIQD 10 ML PO SCH ×3 (16:12→21:51)
[2022-06-07] MEDS: GLYCOPYRROLATE 2 MG TAB PO SCH ×2 (16:12→21:34)
[2022-06-07] MEDS: CYANOCOBALAMIN (VIT B-12) 100 MCG TAB PO SCH (16:14)
[2022-06-07] MEDS: DIGOXIN 0.125 MG TAB PO SCH (16:16)
[2022-06-07 18:09] LABS: Basophils % (Auto) 0.3 % (0.0-1.8); Eosinophils # (Auto) 0.1 K/mm3 (0.0-0.4); Eosinophils % (Auto) 0.9 % (0.0-4.3); Hematocrit 23.2 % (35.5-45.6); Hemoglobin 7.5 gm/dl (11.8-15.2); Lymphocytes # (Auto) 1.1 K/mm3 (1.2-5.4); Lymphocytes % (Auto) 12.4 % (13.4-35.0); Mean Corpuscular HGB Conc 33 % (32-34); Mean Corpuscular Volume 92 fl (84-94); Monocytes # (Auto) 0.6 K/mm3 (0.0-0.8); Monocytes % (Auto) 6.7 % (0.0-7.3); Platelet Count 503 K/mm3 (140-440); Red Blood Count 2.52 M/mm3 (3.65-5.03); Red Cell Distribution Width 18.1 % (13.2-15.2)
[2022-06-07 18:18] LABS: Alanine Aminotransferase 9 units/L (7-56); Albumin 2.6 g/dL (3.9-5); Blood Urea Nitrogen 15 mg/dL (9-20); Calcium 8.8 mg/dL (8.4-10.2); Hemolysis Index 0
[2022-06-07 18:23] LABS: BUN/Creatinine Ratio 25
[2022-06-07] MEDS: FLUTICASONE PROPIONATE NASAL SPRAY 16 GM NS SCH (23:15)
[2022-06-08] MEDS: CEFEPIME/NS 2 GM/100 ML 2 GM/100 ML BAG IV SCH ×2 (03:47→10:38)
[2022-06-08] MEDS ORDERED: DEXTROSE 50% IN WATER (25GM) 50 ML SYRINGE IV NR (06:29)
[2022-06-08] MEDS: METOPROLOL TARTRATE 25 MG TAB FEEDTUBE SCH ×3 (06:39→17:11)
--- NOTE | 2022-06-08 10:14 | Discharge Summary ---
Providers - Providers Date of Admission: 06/06/22 18:19 Attending physician: GINO GAMING MD 06/06/22 19:05 Consult to Wound/ET Nurse [CONS] Routine Reason For Exam: wound eval Primary care physician: MARISSA KRAMER Hospitalization Reason for admission: sepsis Condition: Stable Hospital course: 66 YO Male Long Term Facility Resident with Vascular Dementia, Cerebral Atherosclerosis, Axonic Brain Injury S/P Trach/Peg placement, HTN, GERD, diastolic CHF, Debility, BLE Contracture, Paroxysmal Atrial fib not on therapeutic anticoagulation due to recent GI bleed, chronic osteomyleitis, HLD, Anemia Chronic Disease, sacral decubitus ulcer present on admission presents to ED for evaluation. Patient has diminished cognition and is nonverbal and is unable to provide history. Patient has history provided by EMS staff, ED staff, as well as jail facility staff. As per staff the patient was found to have fever to 102.1 F today as well as systolic blood pressure in the 90s. EMS was notified and upon arrival the patient was found to be in distress and subsequent transported to [facility] for further care and evaluation of the aforementioned symptoms. The patient was seen and evaluated in the emergency department. All lab and imaging studies reviewed. Patient found to have fever to 102 F, a systolic blood pressure in the 90s, and a pulse oximetry of 86% on room air which is consistent with acute hypoxemic respiratory failure suspected secondary to right lower lobe pneumonia likely secondary to aspiration, sepsis. Patient admitted to [facility] due to increased risk of worsening symptoms and for medical stabilization. Patient initiated on sepsis protocol. No reports of chest pain, palpitation, productive cough, skin rash, recent contact, known exposure to COVID-19. Prior admission on 02/01/2022 reviewed. All medication listed at time of admission has been reconciled. Advanced care planning conducted in ED. Past History Past Medical History: atrial fib, anemia, GERD, heart failure, hypertension, hyperlipidemia, other (See HPI) Past Surgical History: Other (Trach and PEG placement) Social history: single. denies: smoking, alcohol abuse, prescription drug abuse Family history: diabetes, hypertension 06/07: Patient with Sepsis secondary to acute cystitis which likely led to Exacerbation of Atrial fibrillation with hypotension now resolving, complicated by Severe anemia. Baseline Hgb is around 8. No evidence of GI bleed. Urine culture sent for. cct 35 min 06/08: Cultures remain negative, patient clinically improved, no new complaints. I educated the patients daughter. Reviewed prior records, patient had VRE in urine back in January, did not appear it was treated at that time. H/G is relatively stable. Will treat with Linezolid for 10 days. Patient should follow with ID. I discontinued the patients anticoagulation due to persistent anemia. 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 (1) Sepsis Status: Acute Qualifiers: Acute respiratory failure type: with hypoxia Plan to address problem: Sepsis protocol: Chest x-ray, CBC, BMP, urinalysis, IV fluid resuscitation therapy, IV antibiotic therapy, maintain mean arterial pressure greater than equal to 65, IV pressor support as clinically indicated, blood culture, serial lactic acid level, monitor fluid balance. (2) Aspiration pneumonia due to gastric secretions Status: Acute Qualifiers: Laterality: right Lung location: lower lobe of lung Qualified Code(s): J69.0 - Pneumonitis due to inhalation of food and vomit Plan to address problem: Pneumonia protocol: Suspected gram-negative pneumonia. IV antibiotic therapy, supplemental oxygen, pulse oximetry, nebulizer therapy, aspiration precautions, (3) Acute and chronic respiratory failure Status: Acute Qualifiers: Respiratory failure complication: hypoxia Qualified Code(s): J96.21 - Acute and chronic respiratory failure with hypoxia Plan to address problem: Chest x-ray, supplemental oxygen, pulse oximetry, nebulizer therapy, noninvasive positive pressure ventilation as clinically indicated. Tracheostomy care. (4)Acute Cystitis with prior VRE (5) Osteomyelitis hip Status: Acute Plan to address problem: Chronic, supportive care, continue medical management. (6) Sacral pressure sore Status: Acute Plan to address problem: Wound care consulted, wound care as per wound care team. (7) Atrial fibrillation Status: Acute Qualifiers: Atrial fibrillation type: paroxysmal Qualified Code(s): I48.0 - Paroxysmal atrial fibrillation Plan to address problem: Continue prophylactic anticoagulation. Therapy anticoagulation discontinued due to GI bleed (8) Vascular dementia Status: Acute Qualifiers: Dementia behavioral disturbance: without behavioral disturbance Qualified Code(s): F01.50 - Vascular dementia without behavioral disturbance Plan to address problem: Verbal prompting, verbal redirection, benzodiazepine therapy as clinically indicated. (9) Cerebral atherosclerosis Status: Acute Plan to address problem: Risk factor reduction, antiplatelet therapy as clinically indicated. (10) GERD (gastroesophageal reflux disease) Status: Acute Qualifiers: Esophagitis presence: without esophagitis Qualified Code(s): K21.9 - Gastro-esophageal reflux disease without esophagitis Plan to address problem: PPI therapy, supportive care. (11) History of anoxic brain injury Status: Acute Plan to address problem: Supportive care, chronic, neuro check. (12) Severe Anemia (13) Hypokalemia (14) Advance care planning Status: Acute Plan to address problem: Disease education done, care plan discussed, diagnosis discussed, prognosis discussed, patient is full code, +30 minutes. (15) Preventative health care Status: Acute Plan to address problem: Patient to follow-up with primary care physician for all age and risk factor appropriate screening tests, jail facility staff educated regarding trach care and aspiration precautions. +30 minutes. (16)Persistent Chronic anoxic brain injury Status: Acute Plan to address problem: Supportive care, chronic, neuro check. Disposition: [facility] Final Discharge Diagnosis (Prints w/discharge instructions): Sepsis. Aspiration pneumonia due to gastric secretions. Acute and chronic respiratory failure. Acute Cystitis with prior VRE. Osteomyelitis hip. Sacral pressure sore. Atrial fibrillation. Vascular dementia. Cerebral atherosclerosis. GERD (gastroesophageal reflux disease). History of anoxic brain injury. Severe Anemia. Hypokalemia. Persistent Chronic Anoxic brain injury Time spent for discharge: 35 mins Core Measure Documentation - Palliative Care Palliative Care/ Comfort Measures: Not Applicable - Core Measures Any of the following diagnoses?: none Exam - Physical Exam Narrative exam: General appearance: Present: No distress, patient has chronic trach, cachectic - EENT Eyes: Present: PERRL - Neck Neck: Present: supple, normal ROM - Respiratory Respiratory effort: labored, Trach Respiratory: right: diminished - Cardiovascular Rhythm: other (Tachycardia) Heart Sounds: Present: S1 & S2. Absent: rub, click - Extremities Extremities: pulses symmetrical, No edema Peripheral Pulses: abnormal (Capillary refill greater than 3.5 seconds) - Abdominal General gastrointestinal: Present: soft, non-tender, non-distended, normal bowel sounds Male genitourinary: Present: normal - Integumentary Integumentary: Present: dry, clammy, decreased turgor - Musculoskeletal Musculoskeletal: generalized weakness - Psychiatric Psychiatric: no appropriate mood/affect, no intact judgment & insight, no memory intact - Neurologic Neurologic: CNII-XII intact, focal deficits, no moves all extremities, no gait normal - Constitutional Vitals: Temp Pulse Resp BP Pulse Ox 99.3 F 70 16 112/64 100 06/08/22 07:20 06/08/22 09:00 06/08/22 09:00 06/08/22 09:00 06/08/22 09:00 Plan Activity: advance as tolerated, fall precautions Diet: other (as tolerated) Special Instructions: record daily weights, record daily BP diary Follow up with: MARISSA KRAMER MD [Primary Care Provider] - 7 Days MERISSA MCCOY MD [Staff Physician] - 7 Days Prescriptions: Linezolid [Zyvox] 600 mg PO Q12HR #20 tablet
[2022-06-08] MEDS: GLYCOPYRROLATE 2 MG TAB PO SCH ×2 (10:36→14:49)
[2022-06-08] MEDS: FLUTICASONE PROPIONATE NASAL SPRAY 16 GM NS SCH (10:36)
[2022-06-08] MEDS: FUROSEMIDE 40 MG TAB PO SCH (10:36)
[2022-06-08] MEDS: HYPROMELLOSE 0.5% OPHTH SOLN 15 ML OU SCH (10:36)
[2022-06-08] MEDS: SENNOSIDES 8.6 MG TAB FEEDTUBE SCH (10:36)
[2022-06-08] MEDS: FAMOTIDINE 20 MG TAB FEEDTUBE SCH (10:37)
[2022-06-08] MEDS: MIDODRINE 10 MG TAB FEEDTUBE SCH ×3 (10:37→17:00)
[2022-06-08] MEDS: guaiFENesin DM 200/20 MG ORAL LIQD 10 ML PO SCH ×3 (10:37→17:11)
[2022-06-08] MEDS: HEPARIN 5,000 UNIT/1 ML VIAL SUB-Q SCH (10:37)
[2022-06-08] MEDS ORDERED: LINEZOLID 600 MG TAB PO SCH (11:00)
[2022-06-08] MEDS ORDERED: POTASSIUM CHLORIDE ER 20 MEQ TAB PO NR (11:00)
[2022-06-08] MEDS: CYANOCOBALAMIN (VIT B-12) 100 MCG TAB PO SCH (13:28)
[2022-06-08] MEDS: BETHANECHOL 10 MG TAB PO SCH ×2 (13:28→17:00)
[2022-06-08] MEDS: DIGOXIN 0.125 MG TAB PO SCH (17:00)
[2022-06-08 18:38] VITALS: BP 149/107
[2022-06-09] MEDS ORDERED: SCOPOLAMINE TRANSDERMAL PATCH 72 HR TD SCH (10:00)
--- NOTE | 2022-06-11 13:53 | Electrocardiograph Report ---
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
== END 2022-06-08 18:38 | DRG 871 ==
LOC: ED 13:08 → IMCU 18:19
PROVIDERS: ADMIT Internal Medicine; ATTEND Internal Medicine
PROC: 06HY33Z Insertion of Infusion Device into Lower Vein, Percutaneous Approach (ICD-10-PCS; 2022-06-06)
PROC: B54BZZA Ultrasonography of Right Lower Extremity Veins, Guidance (ICD-10-PCS; 2022-06-06)
PROC: 30233N1 Transfusion of Nonautologous Red Blood Cells into Peripheral Vein, Percutaneous Approach (ICD-10-PCS; principal; 2022-06-07)
DX: A41.9 Sepsis, unspecified organism (principal); J69.0 Pneumonitis due to inhalation of food and vomit; J96.21 Acute and chronic respiratory failure with hypoxia; I48.20 Chronic atrial fibrillation, unspecified; I50.30 Unspecified diastolic (congestive) heart failure; N30.00 Acute cystitis without hematuria; M86.8X8 Other osteomyelitis, other site; G93.1 Anoxic brain damage, not elsewhere classified; Z20.822 Contact with and (suspected) exposure to COVID-19; I25.10 Atherosclerotic heart disease of native coronary artery without angina pectoris; E78.5 Hyperlipidemia, unspecified; I11.0 Hypertensive heart disease with heart failure; E87.6 Hypokalemia; L89.159 Pressure ulcer of sacral region, unspecified stage; Z93.0 Tracheostomy status; F01.50 Vascular dementia, unspecified severity, without behavioral disturbance, psychotic disturbance, mood disturbance, and anxiety; I67.2 Cerebral atherosclerosis; K21.9 Gastro-esophageal reflux disease without esophagitis; D64.9 Anemia, unspecified; I48.0 Paroxysmal atrial fibrillation; Z86.73 Personal history of transient ischemic attack (TIA), and cerebral infarction without residual deficits; Z83.3 Family history of diabetes mellitus; Z82.49 Family history of ischemic heart disease and other diseases of the circulatory system
CPT/HCPCS: 36415; 71045; 80053; 80061; 80162; 80202; 81001; 82140; 82962; 83880; 84484; 85025; 85610; 85730; 86850; 86900; 86901; 86920; 87040; 87086; 93005; 94760; 96365; 96376; 99285; G0378; J3490; J0692; J1644; J3370; J7030; J7040; P9016; U0003